=== PATIENT | female | born 1980 | race Caucasian/White ===

== ENCOUNTER 2019-12-24 08:05 | Outpatient (CLI) | payer BC, SELFPAY ==
[2019-12-24 09:11] LABS: Alanine Aminotransferase 19 U/L (4-35); Alkaline Phosphatase 101 U/L (38-126); Aspartate Amino Transferase 21 U/L (14-36); Bilirubin,Total 0.3 mg/dL (0.2-1.3); Blood Urea Nitrogen 17 mg/dL (7-17); Calcium 8.8 mg/dL (8.4-10.2); Carbon Dioxide 27 mmol/L (22-30); Chloride 104 mmol/L (98-107); Cholesterol 160 mg/dL (0-200); Estimated Glomerular Filt Rate > 60; Glucose 101 mg/dL (65-105); HDL Direct 35 mg/dL; Sodium 139 mmol/L (137-145); Triglycerides 58 mg/dL (<150)
[2019-12-24 09:22] LABS: LDL Cholesterol Direct 112 mg/dL
== END 2019-12-24 08:06 | disposition home or self-care (01) ==
PROVIDERS: PCP Family Medicine; Visit Provider Family Medicine
DX: K76.0 Fatty (change of) liver, not elsewhere classified (principal); R63.5 Abnormal weight gain; Z13.220 Encounter for screening for lipoid disorders
CPT/HCPCS: 36415; 80053; 80061; 84443

== ENCOUNTER 2020-10-18 08:07 | Outpatient (CLI) | payer BC, SELFPAY ==
--- NOTE | 2020-11-03 10:24 | WPDHOMESLEEP ---
Sleep Study - Home Unattended Date of Study: 10/18/20 Ordering Provider: Manuel Figueroa DO Interpreting Provider: Trang Apodaca MD Home Sleep Study Type: Apnea Link Air Height: 1.6 m Weight: 92.986 kg Body Mass Index: 36.3 Neck Circumference (inches): 13 Corona: 12 Reason for Sleep Study Poor quality sleep, frequent nighttime awakenings, excessive daytime sleepiness Sleep History Pamela Norton is a 40 year old female with anxiety, chronic pain, hypertension and restless legs syndrome on ropinirole. She rarely awakens from sleep feeling short of breath. She does not awaken at night with heartburn, belching or coughing. She frequently snores and occasionally this is loud enough that others complain about it. She rarely has trouble sleep with a cold. She frequently wakes up gasping for breath at night. She does not have breathing problems at night reported to her by others. She occasionally sweats excessively at night. She frequently notices her heart pounding or beating irregularly night. She constantly falls asleep during the day. She does not fall asleep involuntarily or while driving. She does not fall asleep while exerting physical effort. She does not have loss of muscle tone was strong emotion. She occasionally has daytime difficulties due to excessive sleepiness. She does not feel paralyzed on waking or falling asleep. She constantly has vivid dreamlike scenes upon awakening or falling asleep. She does not feel afraid to go to sleep. She frequently has nightmares. She constantly remembers her dreams. She occasionally has racing thoughts. She has had feelings of sadness and depression as her mother 6 months ago. She rarely has anxiety. She occasionally has muscular tension and occasionally notices parts of her body jerking. She constantly kicks at night. She constantly has crawling and aching feelings in her legs. She constantly has leg pain at night, morning jaw pain and she constantly grinds her teeth during sleep. She constantly is awakened by pain during the night and is bothered by pain during the day. She constantly wakes up feeling stiff in the morning with sore achy muscles and pain in the neck and spine. She has palpitations, nightmares, and insomnia. She always has problems with daytime sleepiness. There is a family history of sleep disorders with sleep apnea in her mother, aunt, grandfather. A great grandmother had narcolepsy. Several of her aunts have insomnia. Normal bedtime is midnight taking 30 minutes to fall asleep but sometimes as long as 2 hours. She typically wakes 6-10 times during the night staying awake on average 30 minutes but sometimes as long as 2 hours. She may change positions and try to get back to sleep. She takes naps in the afternoon or evening. Short naps are not refreshing. She is usually drowsy in the morning for 2 hours or longer. She feels better in the evening and the afternoon compared to the morning. She estimates getting between 4 and 8 hours of sleep at night. Habits: Tobacco 10 cigarettes a day. Caffeine 1 cup of coffee a day. No alcohol or recreational drugs. [facility] Past Medical History Medical History (Updated 11/03/20 @ 10:54 by Trang Apodaca MD) Acute sinusitis Anxiety Asthma Back pain Carpal tunnel syndrome Chronic interstitial cystitis Essential hypertension Eustachian tube disorder GERD (gastroesophageal reflux disease) Knee pain Migraine Neck pain Otitis externa Restless legs syndrome (RLS) Serous otitis media Spinal stenosis in cervical region Stenosis of urinary meatus Subconjunctival hemorrhage Upper respiratory infection Urinary tract infectious disease Surgical History Surgical History History of back surgery History of hip surgery History of thyroid surgery History of tubal ligation Family History Family History (Reviewed 11/03/20 @ 10:41 by Dave Oliveira
[2020-11-03 10:52] VITALS: BMI 36.3
== END 2020-10-19 10:48 | disposition home or self-care (01) ==
LOC: ANHCSM 08:07
PROVIDERS: PCP Family Medicine; Visit Provider Internal Medicine Cardiovascular Disease
DX: G47.10 Hypersomnia, unspecified (principal)
CPT/HCPCS: 95806

== ENCOUNTER 2020-10-18 08:50 | Outpatient (CLI) | payer BC, SELFPAY ==
--- NOTE | 2020-10-18 09:01 | EST_ITS ---
Patient Info Name: Pamela Norton Age: 40 years : 1980 Gender: Female Ht: 63 in Wt: 206 lbs BSA: 2.08 m2 HR: 78 bpm BP: 123 / 67 mmHg Heart Rhythm: Sinus Rhythm Exam Date: 10/18/2020 9:05 AM Exam Location: [facility] Pulmonary Patient Status: Outpatient Admit Date: 10/18/2020 Staff Ordering Physician: Manuel Figueroa DO Purchasing Clerk: Katerina Gallo RDCS Attending Provider: Manuel Figueroa DO Exercise Technologist: Asia Wolfe CT Exercise Physician: Manuel Figueroa DO Exam Type: CA stress echo Study Info Indications R06.09 - Other forms of dyspnea Treadmill exercise stress echocardiogram is performed. Summary 1. 1. Inconclusive Felipe exercise stress test for ischemic ST changes by ECG criteria as she achieved only 69% MPHR for age group. 2. 2. Reduced functional capacity, achieving 7 METs of workload. 3. 3. Appropriate HR response to exercise. 4. 4. Appropriate HR recovery at 1 minute post exercise. 5. 5. Negative stress echocardiogram for ischemia by wall motion analysis at HR achieved. 6. 6. Patient informed of the above results. Stress Echo Findings Left Ventricle Appropriate increase in LV endocardial thickening with systole. Appropriate augmentation of contractility with systole. No wall motion abnormality. Left Ventricle Normal LV systolic function, no wall motion abnormality. Protocol: Felipe Stress ECG Details Stage: REST Duration (min): 1 min : 5 sec Speed (mph): 0.0 Grade (%): 0 HR (bpm): 81 SBP (mmHg): 123 DBP (mmHg): 67 METS: --- Stage: REST Duration (min): 9 min : 59 sec Speed (mph): 0.0 Grade (%): 0 HR (bpm): 76 SBP (mmHg): 123 DBP (mmHg): 67 METS: --- Stage: STAGE 1 Duration (min): 1 min : 0 sec Speed (mph): 1.7 Grade (%): 10 HR (bpm): 104 SBP (mmHg): 123 DBP (mmHg): 67 METS: --- Stage: STAGE 1 Duration (min): 2 min : 0 sec Speed (mph): 1.7 Grade (%): 10 HR (bpm): 111 SBP (mmHg): 123 DBP (mmHg): 67 METS: --- Stage: STAGE 1 Duration (min): 3 min : 0 sec Speed (mph): 1.7 Grade (%): 10 HR (bpm): 115 SBP (mmHg): 169 DBP (mmHg): 73 METS: --- Stage: STAGE 2 Duration (min): 1 min : 0 sec Speed (mph): 2.5 Grade (%): 12 HR (bpm): 119 SBP (mmHg): 169 DBP (mmHg): 73 METS: --- Stage: STAGE 2 Duration (min): 2 min : 0 sec Speed (mph): 2.5 Grade (%): 12 HR (bpm): 118 SBP (mmHg): 169 DBP (mmHg): 73 METS: --- Stage: STAGE 2 Duration (min): 3 min : 0 sec Speed (mph): 2.5 Grade (%): 12 HR (bpm): 124 SBP (mmHg): 168 DBP (mmHg): 83 METS: --- Stage: STAGE 3 Duration (min): 0 min : 8 sec Speed (mph): 0.0 Grade (%): 0 HR (bpm): 123 SBP (mmHg): 168 DBP (mmHg): 83 METS: --- Stage: RECOVERY Duration (min): 0 min : 51 sec Speed (mph): 0.0 Grade (%): 0 HR (bpm): 97 SBP (mmHg): 151 DBP (mmHg): 74 METS: --- Sta
== END 2020-10-18 08:51 | disposition home or self-care (01) ==
PROVIDERS: PCP Family Medicine; Visit Provider Internal Medicine Cardiovascular Disease
DX: R06.00 Dyspnea, unspecified (principal)
CPT/HCPCS: 93351; 95806

== ENCOUNTER → 2021-07-28 00:23 | Outpatient (CLI) | payer BC, SELFPAY ==
[2021-07-28 17:38] LABS: SARS-CoV-2 RNA PCR Negative
== END ==
PROVIDERS: Visit Provider Obstetrics & Gynecology
DX: Z20.822 Contact with and (suspected) exposure to COVID-19 (principal)
CPT/HCPCS: C9803; U0003; U0005

== ENCOUNTER 2021-07-30 11:38 | Outpatient (CLI) | payer BC, SELFPAY | END 2021-07-30 11:39 | disposition home or self-care (01) | LOC: ANHSURGERY 11:48 | PROVIDERS: PCP Family Medicine; Visit Provider Obstetrics & Gynecology | DX: N94.6 Dysmenorrhea, unspecified (principal); Z01.818 Encounter for other preprocedural examination | CPT/HCPCS: 36415; 86850; 86900; 86901 ==

== ENCOUNTER 2021-08-01 00:03 | Day surgery (SDC) | payer BC, SELFPAY ==
[2021-07-26 12:11] VITALS: BMI 34.9
--- NOTE | 2021-07-26 12:36 | PC.NURSE ---
Report to the Outpatient Waiting Room, entrance under the green pavilion located off [facility], at time 6:00 on date 08/01/21. OR Time: 7:30. - You and your visitor will be asked a series of questions to screen for COVID 19 for your protection. - A mask is required within the hospital. One visitor will be allowed to accompany the patient into the hospital. Patients visitor will be instructed to remain with patient at all times or leave the building. We will allow the visitor to come back to the postoperative area when patient is ready. Preoperative COVID Testing Requirements: COVID TEST 07/28 AT 9:30 No COVID Test needed if: (proof is required; if not received patient will have Rapid Test prior to entry) - Patient has received COVID Vaccine at least 14 days prior to procedure date or - Patient has positive COVID test result within last 90 days of surgery date. COVID Test needed if above criteria is not met If not COVID vaccinated a COVID test must be conducted within 72 hours of surgery and patient is asked to isolate self from time of testing until procedure. You will go to the [facility] for your COVID testing. The [facility] site is located at the corner of [address] [facility]. You will only be called if COVID results are positive and your surgeon may reschedule your elective surgery date. Patients may have clear liquids (water, carbonated beverages, clear teas, apple juice) until 3 hours prior to surgery (4:30) with a maximum of 20 ounces. - No food from midnight until time of surgery Take the following medications with a SIP of water the morning of surgery: BUSPIRONE, GABAPENTIN, LAMOTRIGINE, METOPROLOL, ROPINIROLE, IF NEEDED: INHALER, PAIN PILL, LORAZEPAM, METHOCARBAMOL Medications to discontinue per physician: N/A Date to take last dose: N/A Please no make-up, nail danish, hairspray, perfume, deodorant, or body powder the day of surgery. No jewelry (including any body piercings) or valuables the day of surgery, leave them at home. Please take a shower or bath the night before, or the morning of, surgery with an antibacterial soap. Wear comfortable, loose fitting clothing. - Jewelry must be removed prior to entering the operating room. Rings and piercings that are not removed may be cut off. - The hospital will not accept responsibility for valuables. - Please leave all valuables, including medications, at home the day of surgery. If you are going home after surgery, a licensed home delivery driver must drive you home. - NO public transportation without another adult. - We recommend that an adult stay with you for 24 hours following discharge. - We also recommend that you do not drive, make important decision, drink alcoholic beverages, or take any drugs that were not prescribed by your health care provider for at least 24 hours after your discharge time. Follow any additional instructions given to you from your surgeon. Telephone instructions given to SCARLETT CUELLAR and asked if any additional questions and then verbalized understanding. Patient advised to call surgeon office or pre surgery nurse liaison [phone] if any additional questions.
--- NOTE | 2021-07-31 00:09 | PM.IMHP ---
H&P: HPI History of Present Illness Date/Time: 07/31/21 00:09 She is scheduled for robotic assisted laparoscopic hysterectomy and bilateral salpingectomy. She has a long history of subjective menorrhagia and severe dysmenorrhea which affect her activities during her menstrual cycle. She does not want to try any medication or IUD or any other hormonal options. She had an ultrasound which showed possible fibroid. She had a normal endometrial biopsy. She strongly desires definitive treatment with hysterectomy. She has been informed of risk benefits of hsyterectomy and robotic surgery. Discussed recommendation of removal of fallopian tubes and discussed reasons why her ovaries should remain. Chief Complaint: Heavy periods and pelvic pain. Review of Systems Review of Systems: All systems reviewed & are unremarkable except as noted in HPI and below Cardiovascular: Cardiovascular: Reports no additional cardiovascular complaints, Denies chest pain and Denies dyspnea Respiratory: Respiratory: Reports no additional respiratory complaints and Denies dyspnea Gastrointestinal: Gastrointestinal: Reports abdominal pain, Denies change in bowel habits, Denies diarrhea, Denies nausea and Denies vomiting Genitourinary: Genitourinary: Reports pelvic pain Musculoskeletal: Musculoskeletal: Reports back pain Integumentary/Breasts: Skin/Breast: Reports system reviewed and no additional complaints, except as docu Neurologic: Reports system reviewed and no additional complaints, except as documented [facility] Past Medical History Medical History (Updated 08/01/21 @ 07:12 by Aidan Hand MD) Acute sinusitis Anxiety Asthma Back pain Carpal tunnel syndrome Chronic interstitial cystitis Essential hypertension Eustachian tube disorder GERD (gastroesophageal reflux disease) History of History of spontaneous Knee pain Migraine Neck pain Obstructive sleep apnea Otitis externa Restless legs syndrome (RLS) Serous otitis media Spinal stenosis in cervical region Stenosis of urinary meatus Subconjunctival hemorrhage Upper respiratory infection Urinary tract infectious disease Surgical History Surgical History History of back surgery History of hip surgery History of thyroid surgery History of tubal ligation Family History Family History Mother Hypertension Family history of diabetes mellitus in first degree relative Family history of malignant neoplasm of ovary Grandparent Carcinoma of colon Family history of malignant neoplasm of ovary Diabetes mellitus Family history of malignant neoplasm of male breast Social History Social History Smoking status: Current every day smoker Tobacco type: e-cigarettes/vaping Second hand tobacco smoke exposure: No Alcohol intake: never Substance use: current Substance use type: marijuana Living arrangements: with family Spiritual care concerns: No Meds Home Medications and Allergies Home Medications Medication Instructions Recorded Confirmed Type albuterol sulfate 90 mcg/actuation 2 puff INHALATION Q4H PRN g 09/15/20 08/01/21 History aerosol inhaler amitriptyline 50 mg tablet 50 mg PO QHS 09/15/20 08/01/21 History buspirone 15 mg tablet 15 mg PO BID 09/15/20 08/01/21 History gabapentin 300 mg capsule 300 mg PO BID 09/15/20 08/01/21 History hydrocodone 7.5 mg-acetaminophen 1 tablet PO QHS PRN 09/15/20 08/01/21 History 325 mg tablet lamotrigine 200 mg tablet 200 mg PO DAILY 09/15/20 08/01/21 History lorazepam 1 mg tablet 1 mg PO BID PRN 09/15/20 08/01/21 History methocarbamol 750 mg tablet 750 mg PO TID PRN 09/15/20 08/01/21 History metoprolol succinate 50 mg 50 mg PO DAILY 09/15/20 08/01/21 History tablet,extended release 24 hr ropinirole 2 mg tablet 2 mg PO TID 09/15/20
[2021-08-01] VITALS (17 sets, daily range): BP systolic 96–139; BP diastolic 48–88; PULSE 55–88; RESP 13–20; TEMP 36.2–36.8; O2SAT 93–100
[2021-08-01] MEDS: ACETAMINOPHEN 500 MG TABLET 1000 MG PO (06:25)
[2021-08-01] MEDS: LACTATED RINGERS 1,000 ML 30 ML IV CONT ×2 (06:35→10:56)
--- NOTE | 2021-08-01 07:11 | WPDANESEPPF ---
Anes - Initial Pre Proc Eval Procedure: Operation Date: 08/01/21 07:30 Proposed Procedures p Robotic Total Hysterectomy with Bilateral Salpingectomy, Possible Bilateral Oophorectomy - Mariano Gibson MD Date/Time: 08/01/21 07:11 Surgeon: Mariano Gibson MD Pre Op Diagnosis: menorrhaghia,fibroid uterus,dysmenorrhea Patient Data Age: 41 Gender: F Height: 1.6 m Weight: 89.36 kg Allergies Allergy/AdvReac Type Severity Reaction Status Date / Time aspirin Allergy Severe Anaphylactic Verified 08/01/21 06:24 Shock ciprofloxacin Allergy Severe SEVERE Verified 08/01/21 06:24 MENTAL ALTERATION ibuprofen Allergy Severe Anaphylactic Verified 08/01/21 06:24 Shock morphine Allergy Severe Anaphylactic Verified 08/01/21 06:24 Shock nitrofurantoin Allergy Severe Anaphylactic Verified 08/01/21 06:24 Shock NSAIDS (Non-Steroidal Allergy Severe ANAPHYLACTIC Verified 08/01/21 06:24 Anti-Inflamma SHOCK/HIVES prednisone Allergy Severe Anaphylactic Verified 08/01/21 06:24 Shock venlafaxine [From Effexor] Allergy Mild Dizziness Verified 07/26/21 12:08 Home Medications Medication Instructions Recorded Confirmed Type albuterol sulfate 90 mcg/actuation 2 puff INHALATION Q4H PRN g 09/15/20 08/01/21 History aerosol inhaler amitriptyline 50 mg tablet 50 mg PO QHS 09/15/20 08/01/21 History buspirone 15 mg tablet 15 mg PO BID 09/15/20 08/01/21 History gabapentin 300 mg capsule 300 mg PO BID 09/15/20 08/01/21 History hydrocodone 7.5 mg-acetaminophen 1 tablet PO QHS PRN 09/15/20 08/01/21 History 325 mg tablet lamotrigine 200 mg tablet 200 mg PO DAILY 09/15/20 08/01/21 History lorazepam 1 mg tablet 1 mg PO BID PRN 09/15/20 08/01/21 History methocarbamol 750 mg tablet 750 mg PO TID PRN 09/15/20 08/01/21 History metoprolol succinate 50 mg 50 mg PO DAILY 09/15/20 08/01/21 History tablet,extended release 24 hr ropinirole 2 mg tablet 2 mg PO TID 09/15/20 08/01/21 History Patient hx anesthesia problems: post op nausea/vomiting Family hx anesthesia problems: none Results Review: All pre-operative results and documents have been reviewed as part of the pre-operative evaluation. [facility], [facility] Past Medical History Medical History (Updated 08/01/21 @ 07:12 by Aidan Hand MD) Acute sinusitis Anxiety Asthma Back pain Carpal tunnel syndrome Chronic interstitial cystitis Essential hypertension Eustachian tube disorder GERD (gastroesophageal reflux disease) History of History of spontaneous Knee pain Migraine Neck pain Obstructive sleep apnea Otitis externa Restless legs syndrome (RLS) Serous otitis media Spinal stenosis in cervical region Stenosis of urinary meatus Subconjunctival hemorrhage Upper respiratory infection Urinary tract infectious disease Surgical History Surgical History History of back surgery History of hip surgery History of thyroid surgery History of tubal ligation Family History Family History Mother Hypertension Family history of diabetes mellitus in first degree relative Family history of malignant neoplasm of ovary Grandparent Carcinoma of colon Family history of malignant neoplasm of ovary Diabetes mellitus Family history of malignant neoplasm of male breast Social History Social History Smoking status: Current every day smoker Tobacco type: e-cigarettes/vaping Second hand tobacco smoke exposure: No Alcohol intake: never Substance use: current Substance use type: marijuana Living arrangements: with family Spiritual care concerns: No Anes - Eval Final PreProcedure Day of Procedure 08/01/21 07:11 Patient weight: obese Heart: regular rate and rhythm Lungs: decreased breath sounds Airway: Mallampati scale class II Neurological: aler
--- NOTE | 2021-08-01 07:14 | WPDHPUPDATE1 ---
History and Physical Update Update Date/Time: 08/01/21 07:14 History and Physical has been reviewed, including an updated exam of the patient. There are NO changes in the patient's condition. Risks, benefits, and alternatives have been discussed and questions answered. Patient agrees to proceed with procedure.
[2021-08-01] MEDS: ceFAZolin 2 GM/D5W 50 ML 2 GM/50 ML BAG IVPB (07:30)
[2021-08-01] MEDS: BUPIVACAINE HCL 0.5% PF 30 ML VIAL INFILTRATE (08:10)
--- NOTE | 2021-08-01 10:25 | W.PM.PROC2 ---
Procedure Note - Detailed Date of Procedure 08/01/21 Pre-op Diagnosis menorrhaghia,fibroid uterus,dysmenorrhea Post-op Diagnosis same Procedure Performed Robotic assisted laparoscopic total vaginal hysterectomy with bilateral salpingectomy Surgeon Mariano Gibson MD Anesthesia general Indications Pelvic pain, heavy periods, dysmenorrhea affecting quality of life. She does not want to try any hormonal options. Prior ultrasound showed possible fibroid on ultrasound. She desires definitive treatment. Findings Normal appearing uterus and normal appearing ovaries bilaterally. Evidence of bilateral tubal ligation. Falope ring seen on right tube. Normal appearing appendix. Description of Procedure After informed consent was obtained she was taken to the operating room and general endotracheal anesthesia was administered. She was placed in low lithotomy position and prepped and draped in sterile fashion. Gonzalez catheter placed in bladder. Attention was turned to the vagina speculum was inserted. Single-tooth tenaculum placed on anterior lip of the cervix the uterus sounded to 9 cm. The cervix was dilated to a 8 [place] dilator. The uterine manipulator was inserted and secured. A size 3.0 colp cup was secured in the vagina. At this time anesthesia informed me that she had a bradycardic episode, this did resolve. Then attention was turned to the abdomen with new sterile the glove and incision was made horizontal 2 cm above the umbilicus. The subcutaneous tissue was dissected with S retractors. Anterior and posterior fascia grasped with Nuria clamp and incised. Peritoneum entered. No adhesions palpated. The fascia sutures were secured with 0 vicryl. The robotic hysson port and camera inserted into abdomen and secured to fascial sutures. A Pneumoperitoneum of 15 mm per mercury was obtained. No abdominal or pelvic adhesions noted. A small incision was made approximately 6 cm lateral to the port on the left side of the port. A size 8mm robotic port was inserted under laparoscopic visualization into the abdomen on the left side. Attention was turned to the right side of the abdomen 6cm medial to the initial incision and incision was made and a size 8 robotic port was inserted under laparoscopic visualization. Superior and 5 mm medial to this a 10 undertaker assistant port was inserted under laparoscopic visualization. Patient was placed in Trendelenburg position to the point to allow the bowel to retract out of the pelvis. The robotic arms were attached. Attention was turned to the surgical console. The right round ligament was ligated with the synchroseal. The anterior leaf of the broad ligament was dissected anteriorly. The vesicoperitoneum was dissected from lower uterine segment to past the middle of uterus. The right side of the bladder was dissected from the lower uterine segment and upper cervix. The right fallopian tube segments were cauterized from the broad ligament. The right ovarian ligament was ligated with syncroseal. The a posterior leaf of the broad ligament was further dissected. The uterine vessels on the right were skeletonized. The ascending uterine vessels on the right were cauterized. The uterine vessels were cauterized. Attention was turned to the left fallopian tube which was cauterized from the broad ligament. The left round ligament was ligated and the anterior leaf of the broad ligament was dissected anteriorly. The rest of the vesicouterine peritoneum was dissected off of the uterus. Once the bladder was dissected below the colp cup then the posterior leaf of the broad ligament was further dissected. the ovarian ligament was ligated. The ascending uterine vessels were ligated with the syncroseal. The uterine arteries were skeletonized. The uterine arteries were ligated. The cardinal ligaments were ligated. This was done on both sides. An incision was made anterior colpotomy incision was made and this was carried around until the cerv
[2021-08-01] MEDS: ONDANSETRON INJ 4 MG/2 ML VIAL IV PUSH ×2 (10:43→11:14)
[2021-08-01] MEDS: SCOPOLAMINE 1.5 MG PATCH TRANSDERM (10:46)
[2021-08-01] MEDS: fentaNYL CITRATE INJ (*CRX) 100 MCG/2 ML VIAL 25 MCG IV PUSH ×8 (10:47→11:34)
[2021-08-01] MEDS: HYDROmorphone HCL INJ (*CRX) 1 MG/ML SYR IV PUSH ×3 (11:40→12:14)
--- NOTE | 2021-08-01 12:10 | PC.NURSE ---
PT arrived on unit via bed accompanied by spouse. Pt alert and awake and oriented to room 279 and surrounding area. PT introductions made and plan of care discussed per post op sports media surgery, pain management, daily care activities. PT received such instructions per one to one discussion and demonstrations this shift. PT and spouse both recipients of such care and no barriers to learning identified at this time.
[2021-08-01] MEDS: DEXTROSE 5%/0.45% SOD CHL 1,000 ML 125 ML IV CONT (13:07)
[2021-08-01] MEDS: methocarbamoL 750 MG TABLET PO ×2 (15:35→22:32)
[2021-08-01] MEDS: SIMETHICONE 80 MG TAB.CHEW (19:59)
[2021-08-01] MEDS: rOPINIRole HCL 1 MG TABLET 2 MG PO (22:28)
[2021-08-01] MEDS: busPIRone HCL 5 MG TABLET 15 MG PO (22:29)
[2021-08-01] MEDS: lamoTRIgine 100 MG TABLET 200 MG PO (22:29)
[2021-08-01] MEDS: METOPROLOL SUCCINATE EXT REL 50 MG TABCR PO (22:30)
[2021-08-01] MEDS: AMITRIPTYLINE HCL 25 MG TABLET 50 MG PO (22:33)
[2021-08-01] MEDS: GABAPENTIN 300 MG CAPSULE PO (22:33)
[2021-08-02 03:30] VITALS: BP 121/68; PULSE 70; RESP 16; TEMP 36.7; O2SAT 97
[2021-08-02 03:41] VITALS: PULSE 70; RESP 16; O2SAT 97
--- NOTE | 2021-08-02 07:00 | PC.NURSE ---
PT introductions made and plan of care discussed per post op brim presser surgery, pain management, daily care activities and pending discharge to home. PT sole recipient of such instructions and no barriers to learning identified. PT received such instructions per one to one discussion and demonstrations this shift. PT verbalized understanding of such care.
[2021-08-02 07:10] VITALS: BP 101/57; PULSE 75; RESP 16; TEMP 36.9; O2SAT 98
[2021-08-02 08:52] VITALS: PULSE 75; RESP 16; O2SAT 98
[2021-08-02] MEDS: HYDROcodone/acetaminophen (*CRX) 10-325 MG TABLET 1 TAB PO (08:52)
[2021-08-02] MEDS: rOPINIRole HCL 1 MG TABLET 2 MG PO (08:55)
[2021-08-02] MEDS: busPIRone HCL 5 MG TABLET 15 MG PO (08:56)
--- NOTE | 2021-08-02 08:56 | PM.GYNPNOP ---
[employer] - A/P Assessment and plan (1) Status post hysterectomy: Code(s): Z90.710 - Acquired absence of both cervix and uterus Status: Acute Assessment and Plan: She is doing well. Will start oral antibiotic due to sl redness at umbilical incision. Will have her ambulate and if tolerating well then anticipate discharge today. Postoperative Procedures: Procedures Operation Date: 08/01/21 07:30 Actual Procedure Side Surgeon p Robotic Total Hysterectomy with Bilateral Salpingectomy Bilateral Mariano Gibson MD Time Spent With Patient Time: Total time spent is greater than 50% in coordination of care (as documented) at patient's floor/unit and/or counseling patient: Time with patient: less than 15 minutes [employer]- PN:Subj Post-Op Subjective Date/time seen: 08/02/21 08:56 She did walk yesterday and did ok. Pain was controlled. She is more sore today. More soreness at her umbilcus. Tolerating regular diet. Positive flatus. Exam Const: General: no acute distress, alert and awake Eyes: General: appearance normal, both eyes and all related structures Resp: Effort & Inspection: normal respiratory effort GI: Other: incisions intact, bruising sl warm at umbilical incision and below Extrem: General: normal to inspection and other (nontender) Psych: Appearance: grossly normal [employer] - PN: Obj Data Vital Signs Vital Signs: Vital Signs - 24 hr 08/01/21 10:13 08/01/21 10:25 08/01/21 10:40 Temperature 97.2 F L Pulse Rate 56 L 67 66 Respiratory Rate 16 19 20 Blood Pressure 121/69 130/64 108/88 Pulse Oximetry 98 96 93 08/01/21 10:55 08/01/21 11:10 08/01/21 11:25 Temperature Pulse Rate 66 55 L 68 Respiratory Rate 13 13 20 Blood Pressure 138/83 139/81 136/87 Pulse Oximetry 94 96 97 08/01/21 11:40 08/01/21 11:55 08/01/21 12:10 Temperature Pulse Rate 76 77 81 Respiratory Rate 18 17 15 Blood Pressure 124/73 115/68 116/70 Pulse Oximetry 100 99 97 08/01/21 12:25 08/01/21 12:30 08/01/21 12:40 Temperature 97.7 F Pulse Rate 68 84 84 Respiratory Rate 13 18 18 Blood Pressure 105/54 L 107/63 Pulse Oximetry 96 93 93 08/01/21 17:15 08/01/21 19:40 08/01/21 22:30 Temperature 98.3 F 98.1 F Pulse Rate 88 86 74 Respiratory Rate 18 16 Blood Pressure 110/61 99/61 L Pulse Oximetry 97 96 08/01/21 23:50 08/02/21 03:30 08/02/21 03:41 Temperature 98.1 F 98.0 F Pulse Rate 70 70 70 Respiratory Rate 16 16 16 Blood Pressure 96/48 L 121/68 Pulse Oximetry 96 97 97 08/02/21 07:10 Temperature 98.4 F Pulse Rate 75 Respiratory Rate 16 Blood Pressure 101/57 L Pulse Oximetry 98 Intake/Output Intake/Output: Intake & Output 07/30/21 07/31/21 08/01/21 08/02/21 23:59 23:59 23:59 23:59 Intake Total 2650 300 Output Total 2250 1200 Balance 400 -900 Meds/Results Medications: Active Medications Generic Name Dose Route Start Last Admin Trade Name Freq PRN Reason Stop Dose Admin Hydrocodone Bitart/Acetaminophen 1 tab 08/01/21 10:55 Hydrocodone/Acetaminophen (*Crx) 5-325 Mg Tablet PO Q3H PRN Pain Rated 5 or Less Hydrocodone Bitart/Acetaminophen 1 tab 08/01/21 10:55 Hydrocodone/Acetaminophen (*Crx) 10-325 Mg Tablet PO Q3H PRN Pain Rated 6 or Greater Albuterol 2 puff 08/01/21 10:54 Albuterol Sulfate (*Sp) Aerosol 1 Puff INHALATION Q4H PRN Bronchospasm Amitriptyline HCl 50 mg 08/01/21 21:00 08/01/21 22:33 Amitriptyline Hcl 25 Mg Tablet PO 50 mg HS GLORIA Administration Buspirone HCl 15 mg 08/01/21 21:00 08/01/21 22:29 Buspirone Hcl 5 Mg Tablet PO 15 mg Q12HR GLORIA Administration Gabapentin 300 mg 08/01/21 17:00 08/01/21 22:33 Gabapentin 300 Mg Capsule PO 300 mg BID GLORIA Administration Dextrose/Sodium Chloride 1,000 mls @ 125 mls/hr 08/01/21 10:05 08/02/21 03:46 Dextrose 5% Sodium Chloride 0.45% IV CONT Not Given .Q8H GLORIA Acetaminophen 1,000 mg in 100 mls @ 400 mls/hr 08/01/21 1
--- NOTE | 2021-08-02 11:24 | WPDANESPN ---
Anes - Prog Note Post-Op Date/Time: 08/02/21 11:24 Cardiovascular status: normal Respiratory status: normal Airway patency: baseline Mental status: baseline Post-Op hydration status: normal Vital Signs: Last Vital Signs Temp 36.9 C 08/02/21 07:10 Pulse 75 08/02/21 08:52 Resp 16 08/02/21 08:52 BP 101/57 L 08/02/21 07:10 Pulse Ox 98 08/02/21 08:52 Pain Score (VAS): 0 I/O: Intake & Output 08/01/21 08/02/21 08/02/21 23:59 07:59 15:59 Intake Total 2100 300 Output Total 2200 1200 Balance -100 -900 Post-procedural complaints: none Patient Feedback: Patient satisfied with anesthetic care.
[2021-08-02] MEDS: CEPHALEXIN 500 MG CAPSULE PO (13:10)
[2021-08-02] MEDS: methocarbamoL 750 MG TABLET PO (13:10)
[2021-08-02] MEDS: HYDROcodone/acetaminophen (*CRX) 5-325 MG TABLET 1 TAB PO (13:10)
--- NOTE | 2021-08-02 13:30 | PC.NURSE ---
PT received discharge instructions per protocol and verbalized understanding of such care.
--- NOTE | 2021-08-02 13:45 | PC.NURSE ---
PT discharged to home via wheelchair unaccompanied to waiting car. Follow up appts confirmed
== END 2021-08-02 13:45 | disposition home or self-care (01) ==
LOC: ANHSURGERY 05:48 → ANHOB2 13:42
PROVIDERS: PCP Family Medicine; Visit Provider Obstetrics & Gynecology
PROC: (CPT 58552; principal; 2021-08-01 07:30)
DX: N92.0 Excessive and frequent menstruation with regular cycle (principal); N94.6 Dysmenorrhea, unspecified; R00.1 Bradycardia, unspecified; Z79.51 Long term (current) use of inhaled steroids; F17.290 Nicotine dependence, other tobacco product, uncomplicated; F12.90 Cannabis use, unspecified, uncomplicated; K21.9 Gastro-esophageal reflux disease without esophagitis; F41.9 Anxiety disorder, unspecified; J45.909 Unspecified asthma, uncomplicated; I10 Essential (primary) hypertension; G47.33 Obstructive sleep apnea (adult) (pediatric); G25.81 Restless legs syndrome; N88.8 Other specified noninflammatory disorders of cervix uteri; N80.0 Endometriosis of uterus; N83.8 Other noninflammatory disorders of ovary, fallopian tube and broad ligament; N35.92 Unspecified urethral stricture, female; E66.9 Obesity, unspecified; Z68.36 Body mass index [BMI] 36.0-36.9, adult; R10.12 Left upper quadrant pain
CPT/HCPCS: 58552; S2900; 88307; 99199; A9270; J0131; J0690; J1100; J1170; J2250; J2405; J2704; J2710; J3010; J7030; J7120